=== PATIENT | female | born 1990 | race Caucasian/White ===

== ENCOUNTER 2019-11-24 13:38 | Inpatient (IN) | payer BC ==
[2019-11-24] MEDS ORDERED: Buffered Lidocaine 1% SYRIN* 1 ML/SYRINGE INTRADERM ONE (14:40)
[2019-11-24] MEDS ORDERED: Dinoprostone* 10 MG VAG.SUPP VAGINAL ONE (14:40)
[2019-11-24] MEDS ORDERED: Lactated Ringers 1000 ML Bag* 1,000 ML IV ONE (14:40)
[2019-11-24] MEDS ORDERED: Lactated Ringers 1000 ML Bag* 1,000 ML IV SCH (15:00)
--- NOTE | 2019-11-24 15:33 | HP ---
General Information - Reason for Visit Pt here for cervical ripening/ IOL for preeclampsia at 37 weeks gestation. - General Information Maternal Age: 29 Grav: 1 Para: 0 SAB: 0 IEA: 0 Estimated Due Date: 12/15/19 Determined By: LMP Gestational Age in Weeks/Days: 37 0/7 Maternal Blood Type and Rh: A Positive - Results this Serology/RPR Result: Non-Reactive Rubella Result: Immune HBsAg Result: Negative HIV Result: Negative GBS Culture Result: Negative Past Medical History Delivery History: See Records - primiparous Pertinent Past Medical History: See Records - Anxiety Pertinent Past Surgical History: See Records - Appendectomy Pertinent Family History: Non-Contributory - Antepartal Records Antepartal Records: Reviewed, Complicated by: - Preeclampsia Review of Systems Constitutional: Comfortable CV Complaint: No Respiratory: Shortness of Breath: No Gastrointestinal: No Nausea/Vomiting, Normal Bowel Movement Genitourinary: No Dysuria, No Bleeding, No Leaking Fluid Musculoskeletal: No Complaint, No Epigastric Pain Neurological: No Headache, No Visual Changes Movement: Normal Exam Allergies/Adverse Reactions: Allergies No Known Allergies Allergy (Verified 11/24/19 14:08) T-97.4, P-87, R-18, BP-144/96, O2-98% - Measurements Height: 5 ft 7 in Weight: 109.316 kg Weight in lbs: 241.710145 Body Mass Index (BMI): 37.7 Pre- Weight: 90.718 kg Weight Gained This : 41 lbs and 0 ozs - Exam Breast: Breast Exam Deferred CVA: No CVA Tenderness Extremities: Edema - bilateral +2 pedal and trace hands Heart: Normal Rhythm/Heart Sounds HEENT: No Significant Findings Lungs: Clear Bilaterally Rectal: Rectal Exam Deferred Reflexes: DTR 2+ Thyroid: No Thyromegaly - Abdominal Exam Abdomen Exam: Non-Tender, Fundal Height Consistent with Dates - Ultrasound/Biophysical Profile Ultrasound Status: Not Done Targeted Exam Findings See L&D Outpatient Visit Provider Note for Findings: N/A Estimated Weight: 7# Cervical Exam: Closed Effacement: Thick Station: High Presenting Part: Vertex Membrane Status: Intact Bleeding/Discharge: None EFM Findings - External Monitor Findings Baseline Heart Rate: 130 External Monitor Findings: Accelerations Present, No Pattern of Variable or Late Decelerations, Variability Moderate, Baseline Stable Contractions: None Assessment/Plan - Assessment 29 year old at 37 0/7 weeks gestation with preeclampsia without severe features, no evidence of acidemia, cervix not yet favorable for Pitocin induction. - Obstetrical Risk Factors Obstetrical Risk Factors: PreEclampsia - Plan Plan: Cervical Ripening, Admit - Anticipate Vaginal Delivery - Date/Time of Admission Date of Admission: 11/24/19 Time of Admission: 14:42
[2019-11-24 15:38] LABS: Urine Benzodiazepine Screen None Detected (None Detect); Urine Opiates Screen None Detected (None Detect)
[2019-11-24] MEDS ORDERED: hydrOXYzine HCL TAB* 50 MG PO PRN (16:44)
[2019-11-24] MEDS ORDERED: hydrOXYzine HCL TAB* 50 MG ONE (21:13)
[2019-11-24] MEDS ORDERED: Labetalol IV* 5 MG/ML 20 ML VIAL ONE (23:23)
[2019-11-24] MEDS ORDERED: Acetaminophen TAB* 325 MG ONE (23:28)
[2019-11-24 23:30] LABS: ABS Basophils 0.1 10^3/ul (0-0.2); ABS Eosinophils 0.2 10^3/ul (0-0.6); ABS Lymphocytes 2.3 10^3/ul (1.0-4.8); ABS Monocytes 1.2 10^3/ul (0-0.8); ABS Neutrophils 8.8 10^3/ul (1.5-7.7); Eosinophil % 1.6 %; Hematocrit 31 % (35-47); Lymphocyte % 18.1 %; Mean Corpuscular HGB Conc 33 g/dL (31-36); Mean Corpuscular Hemoglobin 26 pg (27-31); Mean Corpuscular Volume 79 fL (80-97); Mean Platelet Volume 9.4 fL (7.4-10.4); Nucleated Red Blood Cells % 0.1; Platelet Count 266 10^3/uL (150-450); Red Blood Count 3.88 10^6 /uL (3.70-4.87); Red Cell Distribution Width 15 % (10-15); White Blood Count 12.5 10^3/uL (3.5-10.8)
[2019-11-24 23:37] LABS: INR 0.9 (0.82-1.09)
[2019-11-24 23:46] LABS: Albumin 3.4 g/dL (3.2-5.2); Albumin/Globulin Ratio 1.2 (1-3); BUN/Creatinine Ratio 15.2 (8-20); EGFR Non-African American 107.4 (>60); Globulin 2.8 g/dL (2-4); Total Bilirubin 0.3 mg/dL (0.2-1.0); Total Protein 6.2 g/dL (6.4-8.9); Uric Acid 4.8 mg/dL (2.3-6.6)
[2019-11-25] MEDS ORDERED: OBEPIDURAL* 250 ML EPIDURAL ONE (00:09)
[2019-11-25] MEDS ORDERED: Magnesium Sulf 4 GM/100 ML IV* 4,000 MG/100 ML BAG IVPB ONE ×2 (00:13→00:17)
[2019-11-25] MEDS ORDERED: Magnesium Sulfate 2 GM IV* 2 GM/50 ML BAG IVPB ONE (00:13)
[2019-11-25] MEDS ORDERED: EPHEDrine (Pressors)* 50 MG/ML VIAL IV PUSH PRN ×2 (01:06)
[2019-11-25] MEDS ORDERED: Famotidine TAB* 20 MG PO PRN (01:06)
[2019-11-25] MEDS ORDERED: Sodium Citrate/Citric Acid* 15 ML UDC PO PRN (01:06)
[2019-11-25] MEDS ORDERED: Phenylephrine 40 MCG/ML SYRINGE IV PUSH PRN ×2 (01:06)
[2019-11-25] MEDS ORDERED: Lidocaine 1% INJ* 10 MG/ML 30 ML SDV ONE ×2 (01:18→14:01)
--- NOTE | 2019-11-25 01:20 | PN ---
Progress Note - Progress Note Date of Service: 11/25/19 SOAP: Subjective: RN called to notify me that pt had begun to contract frequently with Cervidil in place and was quite uncomfortable. Cervidil pulled shortly after 2300. Pt continues to contract every 1-3 minutes and is very uncomfortable. Pt also reported headache along with elevated BPs. Has improved following PO Tylenol and treatment of elevated BP. Objective: BPs elevated. Pt had two severe elevations and was given IV Labetalol 40 mg on consultation with Dr. Shultz. Following initial improvement, BPs now 150's/ 80' s. Cervix: 2cm/ 80%/ -2/ vtx FHR: Baseline 140/ moderate variability/ + accels/ no decels UCs: 1-3 minutes Magnesium infusing Assessment: Pt with preeclampsia with severe features. No evidence of acidemia. Plan: Consulted with Dr. Shultz, and will comanage care with MDs. IV magnesium initiated with 40 gram loading dose followed by 2 gram/ hr maintenance dose. Pt requesting epidural for pain relief, Dr. Anaya at bedside to perform epidural. PEC labs drawn along with PT/ INR, PTT. Will monitor labor progress and blood pressures closely. Monitor urine output closely. Anticipate progression to .
[2019-11-25] MEDS ORDERED: OBEPIDURAL* 250 ML EPIDURAL SCH (02:00)
--- NOTE | 2019-11-25 03:09 | PN ---
Progress Note - Progress Note Date of Service: 11/25/19 SOAP: Subjective: Pt comfortable with epidural. at bedside. Objective: Cervix: 3cm/ 80%/ -1/ vtx FHR: Baseline 140/ moderate variability/ no accels/ was having recurrent late decels/ currently only intermittent early decels Fluid clear following AROM Magnesium infusing at 2 gm/ hr BP: 127/65 Urine output 90 ml/ hr Assessment: Pt making good cervical change. FHR was Category II, currently Category I. Comfortable with epidural. Plan: Continue magnesium infusion. Dr. Shultz reviewed tracing, recommended AROM to assess amniotic fluid. AROM performed without difficulty to clear fluid.
[2019-11-25] MEDS ORDERED: Acetaminophen TAB* 325 MG PO ONE (06:48)
--- NOTE | 2019-11-25 06:53 | PN ---
Progress Note - Progress Note Date of Service: 11/25/19 SOAP: Subjective: Pt denies contraction pain, does report frontal headache. Has been sleeping well. Objective: Cervical exam by RN: 4-5cm FHR: Baseline 125/ moderate variability/ + accels UCs: 2-4 minutes Urine output 70 cc/ hr Magnesium at 2 mu/min BP: 137/77 Assessment: Pt continues to make good progress. BP stable. No evidence of acidemia. Plan: Acetaminophen given for headache. Continue magnesium sulfate for neuroprotection. Consider Pitocin augmentation as needed.
--- NOTE | 2019-11-25 10:07 | PN ---
Progress Note - Progress Note Date of Service: 11/25/19 Note: S: Pt denies contraction pain. Denies [place], epigastric pain, vision changes. Resting in bed. O: BP: 135/84, HR 79, Temp 98 FHR: Baseline 125/ moderate variability/ + accels UCs: contraction every 4-7 minutes Urine output 175 cc/ hr, total output 1055mL since 0000 Magnesium at 2 mu/min SCDs placed on low, bilateral VE: 5.5/85%/-2, caput noted A: IUP@37+1, IOL for PEC with severe features VSS No evidence of acidemia Contractions have spaced, good resting tone Baby feels asynclitic P: PARQ discussion about Pitocin to augment labor. Plan for low-dose pitocin. Regular position changes Continue magnesium sulfate for neuroprotection. Justina Blue MD is the managing provider. In house and aware of pt condition.
[2019-11-25] MEDS: Oxytocin in LR* 20 UNITS/1,000 ML BAG IVPB SCH (10:40)
[2019-11-25] MEDS ORDERED: Ondansetron INJ* 2 MG/ML VIAL IV PRN (13:51)
[2019-11-25] MEDS ORDERED: Lidocaine 1% MPF ** 5 ML VIAL ONE (14:00)
[2019-11-25] MEDS ORDERED: Lactated Ringers 1000 ML Bag* 1,000 ML IV SCH (14:00)
[2019-11-25] MEDS: Dibucaine 1% 28.35 GM TUBE PR PRN ×2 (14:07→23:05)
[2019-11-25] MEDS: Witch Hazel PAD* JAR TOPICAL PRN (14:07)
[2019-11-25] MEDS: Ibuprofen TAB* 600 MG PO PRN ×2 (15:03→23:02)
[2019-11-25 15:34] LABS: ABS Lymphocytes 0.8 10^3/ul (1.0-4.8); ABS Neutrophils 16.1 10^3/ul (1.5-7.7); Eosinophil % 0.1 %; Hematocrit 31 % (35-47); Hemoglobin 9.9 g/dL (12.0-16.0); Lymphocyte % 4.6 %; Mean Corpuscular HGB Conc 32 g/dL (31-36); Mean Corpuscular Hemoglobin 25 pg (27-31); Mean Corpuscular Volume 79 fL (80-97); Mean Platelet Volume 9.3 fL (7.4-10.4); Nucleated Red Blood Cells % 0.1; Platelet Count 262 10^3/uL (150-450); Red Cell Distribution Width 16 % (10-15); White Blood Count 17.9 10^3/uL (3.5-10.8)
[2019-11-25 15:46] LABS: Activated Partial Thrombo Time 26.4 seconds (26.0-38.0); INR 0.86 (0.82-1.09)
[2019-11-25] MEDS ORDERED: Magnesium Sulfate OB PREMIX* 40 GM/1,000 ML BAG ONE (17:58)
[2019-11-25] MEDS ORDERED: Magnesium Sulfate OB PREMIX* 40 GM/1,000 ML BAG IVPB SCH (18:00)
[2019-11-25] MEDS: Docusate CAP* 100 MG PO SCH ×2 (18:08→23:02)
--- NOTE | 2019-11-25 18:17 | PROCNOTE ---
[facility] OB: Delivery Note - Delivery A Date of : 11/25/19 Time of : 12:47 [place] Weight at : 7 lb 3 oz Score 1 Minute: 9 Score 5 Minutes: 10 Gestational Age in Weeks and Days at Delivery: 37 Weeks and 1 Days Delivery Method: Spontaneous Vaginal Labor: Induced Did Patient attempt ?: N/A, No Previous Amniotic Fluid: Clear Estimated Blood Loss: 300 Anesthesia/Analgesia: CEI for Labor Delivered By: Itzel Blue - Nursery Level of Nursery: Regular/Bedside - Perineum Perineal Injury: Periurethral Laceration Perineal Injury Comment: tucks and dibucaine applied to perinium - Events Delivery Events of Note: Pitocin During Labor, Pitocin Only After Delivery, Mag Sulfate Given - Risk for Falls Delivered OB Patient- Risk for Falls: Magnesium Sulfate in Use Fall Risk: Patient is at High Risk for Falls - Additional Delivery Notes Additional Delivery Notes: Pt underwent induction for preeclampsia. During labor she developed severe PEC with elevated BPs and was given IV meds and started on mag sulfate. She received an epidural at 4-5cm and then after some position changes she progressed to fully dilated. She pushed 35min to deliver the 's head in OG position with one nuchal cord easily reduced. This followed by quick delivery of the shoulders and the rest of the body. The baby was placed on mom' s abdomen. After >1min the cords was clamped x2 and cut. Cord blood collected. The placenta delivered with gentle cord traction and fundal massage and appeared intact. b/l periurethral lacerations were repaired in a running fashion with 3-0 vicryl rapide. Fundus was firm with good hemostasis. Mom and baby stable.
[2019-11-26 07:00] LABS: Hematocrit 21 % (35-47); Hemoglobin 7.1 g/dL (12.0-16.0); Mean Corpuscular HGB Conc 33 g/dL (31-36); Mean Corpuscular Hemoglobin 26 pg (27-31); Mean Corpuscular Volume 79 fL (80-97); Mean Platelet Volume 9.3 fL (7.4-10.4); Platelet Count 209 10^3/uL (150-450); Red Blood Count 2.69 10^6 /uL (3.70-4.87); Red Cell Distribution Width 15 % (10-15); White Blood Count 21.5 10^3/uL (3.5-10.8)
[2019-11-26 07:44] LABS: ABS Basophils 0.1 10^3/ul (0-0.2); ABS Eosinophils 0.2 10^3/ul (0-0.6); ABS Monocytes 1.6 10^3/ul (0-0.8); ABS Neutrophils 17.7 10^3/ul (1.5-7.7); Eosinophil % 0.7 %; Lymphocyte % 9.4 %
[2019-11-26] MEDS: Ibuprofen TAB* 600 MG PO PRN ×3 (08:27→22:28)
[2019-11-26] MEDS: Docusate CAP* 100 MG PO SCH ×3 (08:28→20:26)
[2019-11-26] MEDS: Oxytocin in LR* 20 UNITS/1,000 ML BAG IVPB SCH (09:20)
[2019-11-26] MEDS ORDERED: Oxytocin in LR* 20 UNITS/1,000 ML BAG IVPB SCH (10:00)
[2019-11-26 10:06] LABS: ABS Eosinophils 0.1 10^3/ul (0-0.6); ABS Lymphocytes 1.9 10^3/ul (1.0-4.8); ABS Monocytes 1.2 10^3/ul (0-0.8); ABS Neutrophils 18.1 10^3/ul (1.5-7.7); Eosinophil % 0.4 %; Hematocrit 24 % (35-47); Hemoglobin 7.7 g/dL (12.0-16.0); Lymphocyte % 9.1 %; Mean Corpuscular HGB Conc 32 g/dL (31-36); Mean Corpuscular Hemoglobin 26 pg (27-31); Mean Corpuscular Volume 79 fL (80-97); Mean Platelet Volume 9.2 fL (7.4-10.4); Platelet Count 220 10^3/uL (150-450); Red Blood Count 3.01 10^6 /uL (3.70-4.87); Red Cell Distribution Width 16 % (10-15); White Blood Count 21.4 10^3/uL (3.5-10.8)
[2019-11-26] MEDS: Ferrous Gluconate TAB* 324 MG TAB PO SCH ×2 (11:02→20:26)
[2019-11-26] MEDS: Acetaminophen TAB* 325 MG PO PRN (20:26)
[2019-11-27] MEDS: Ibuprofen TAB* 600 MG PO PRN ×2 (06:38→12:40)
[2019-11-27] MEDS: Ferrous Gluconate TAB* 324 MG TAB PO SCH (08:23)
[2019-11-27] MEDS: Docusate CAP* 100 MG PO SCH ×2 (08:24→12:40)
[2019-11-27 08:25] VITALS: BP 141/80
[2019-11-27] MEDS: Witch Hazel PAD* JAR TOPICAL PRN (08:25)
[2019-11-27] MEDS: Acetaminophen TAB* 325 MG PO PRN (11:40)
== END 2019-11-27 14:15 | disposition home or self-care (01) | DRG 560 ==
LOC: MCHOBOUT 13:38 → MCHOB 14:42
PROVIDERS: ADMIT Midwife; ATTEND Obstetrics & Gynecology
PROC: 10E0XZZ Delivery of Products of Conception, External Approach (ICD-10-PCS; principal; 2019-11-25)
PROC: 3E033VJ Introduction of Other Hormone into Peripheral Vein, Percutaneous Approach (ICD-10-PCS; 2019-11-25)
PROC: 10907ZC Drainage of Amniotic Fluid, Therapeutic from Products of Conception, Via Natural or Artificial Opening (ICD-10-PCS; 2019-11-25)
PROC: 0UQMXZZ Repair Vulva, External Approach (ICD-10-PCS; 2019-11-25)
DX: O14.24 HELLP syndrome, complicating childbirth (principal); Z37.0 Single live birth; O99.344 Other mental disorders complicating childbirth; F41.9 Anxiety disorder, unspecified; O69.81X0 Labor and delivery complicated by cord around neck, without compression, not applicable or unspecified; O71.82 Other specified trauma to perineum and vulva; O90.81 Anemia of the puerperium; D64.9 Anemia, unspecified; Z3A.37 37 weeks gestation of pregnancy
CPT/HCPCS: 36415; 80053; 80307; 83735; 84550; 85025; 85610; 85730; 86850; 86900; 86901; A9270-GY; G0480; J2405; J3475